=== PATIENT | female | born 1985 | race Caucasian/White ===

== ENCOUNTER 2016-05-01 01:26 | Emergency (ER) | payer SELFPAY ==
[~2016-05-01] VITALS: Ht 180.3 cm; Wt 113.4 kg
[2016-05-01 02:00] VITALS: BP 123/77
[2016-05-01] MEDS ORDERED: HYDROCODONE/APAP 5/325MG 1 EACH TABLET ONE (02:53)
[2016-05-01] MEDS ORDERED: HYDROCODONE/APAP 5/325MG 1 EACH TABLET PO ONE (03:00)
== END 2016-05-01 03:07 | disposition home or self-care (01) ==
LOC: ER 01:28
DX: S82.402A Unspecified fracture of shaft of left fibula, initial encounter for closed fracture (principal); X58.XXXA Exposure to other specified factors, initial encounter; Y93.01 Activity, walking, marching and hiking; Y92.9 Unspecified place or not applicable; Y99.9 Unspecified external cause status
CPT/HCPCS: 29125; 73610; 99284; A4606; Z7610